=== PATIENT | female | born 1995 | race Hispanic/Latino ===

== ENCOUNTER → 2017-02-18 | Day surgery (SDC) | payer SELFPAY ==
[~2017-02-18] MED LIST: Acetaminophen 500 MG TAB PO PRN
[2017-02-19 00:25] VITALS: BP 106/61; TEMP 98.2; BMI 26.4
[2017-02-19 01:09] LABS: Bilirubin Negative (Negative); Blood, Urine Negative (Negative); Glucose, Urine (Dipstick) Negative (Negative); Ketone, Urine Negative (Negative); Nitrite Negative (Negative); Protein, Urine (Dipstick) Negative (Neg-Trace)
--- NOTE | 2017-02-19 01:13 | PDOC.LDHP ---
Labor and Delivery H&P Chief complaint: other (brown discharge/spotting X2days) HPI: 22 yo presents for brown vaginal discharge that she noticed after wiping for the last 1.5 days. She does report h/o of fall onto buttocks approx 3 days ago. Reports good movement since fall. Denies dysuria, complications, increased swelling, current headache. Lay Out Inspector cvat tenderness. Fundus approx 4 cm above umbilicus, nttp. Current gestational age (weeks): 22 Due date: 06/20/16 Dating criteria: last menstrual period, first trimester ultrasound Grav: 3 Para: 2 Current complications: none Abnormal US findings: No Current medications: pre-jane vitamins Social history: none - Physical Exam Vital signs reviewed and normal: yes General: NAD, resting Heart: RRR Lungs: nonlabored breathing Abdomen: gravid Extremeties: no edema [place] contractions every: absent - OB Labs Blood type: O RH: positive Antibody Screen: negative HIV: negative RPR: negative HEPSAg: negative GBS: unknown Urine drug screen: not done - Plan Plan: observation in L&D -: vaginal bleeding vp3 UA with microscopy US showed posterior placenta w/o evidence of previa FHR 140s, no contractions No cva tenderness obs, test results pending will f/u <Tristian Jones - Last Filed: 02/19/17 01:43> <Dee Mcelroy - Last Filed: 02/19/17 23:22> Allergies/Adverse Reactions: Allergies Allergy/AdvReac Type Severity Reaction Status Date / Time cinnamon Allergy Verified 01/27/16 06:51 peanut Allergy Verified 01/27/16 06:51 Attending Addendum - Attending Addendum I personally evaluated the patient and discussed the management with Dr. Jones on 02/19/17. I agree with the History, Examination, Assessment and Plan documented above with any addition or exceptions noted below. No cause for brief vaginal spotting found. VP3 resulted negative, urine culture pending. Placenta well away from cervical os. Cat 1 FHTs. Discharge home with close follow up. <Dee Mcelroy - Last Filed: 02/19/17 23:22>
== END ==
LOC: L&D/OP 23:55
PROVIDERS: ATTEND Family Medicine
DX: O26.852 Spotting complicating pregnancy, second trimester (principal); Z91.81 History of falling; Z3A.22 22 weeks gestation of pregnancy; Z79.899 Other long term (current) drug therapy; Z88.8 Allergy status to other drugs, medicaments and biological substances; Z91.010 Allergy to peanuts
CPT/HCPCS: 81003; 87480; 87510; 87660

== ENCOUNTER 2017-06-17 13:17 | Inpatient (IN) | payer MEDICAID, OTHER, SELFPAY ==
[~2017-06-17 13:17] MED LIST changes: -Acetaminophen 500 MG TAB PO PRN; +Bupivacaine 0.25% HCL 30 ML VIAL ONE
[2017-06-17] MEDS: Lactated Ringer's 1,000 ML IV SCH ×2 (14:20→16:17)
[2017-06-17] MEDS ORDERED: Acetaminophen 500 MG TAB PO PRN (14:42)
[2017-06-17] MEDS ORDERED: Ibuprofen 800 MG TAB PO PRN (14:42)
[2017-06-17] MEDS ORDERED: Lidocaine 1% (PF) 30 ML VIAL SC PRN (14:42)
[2017-06-17] MEDS ORDERED: Promethazine HCl 25 MG/ML VIAL IM PRN ×2 (14:42→15:49)
[2017-06-17] MEDS ORDERED: Ondansetron HCl/PF 4 MG/2 ML Vial IVP PRN ×2 (14:42→15:49)
[2017-06-17 14:45] VITALS: BMI 28.7
[2017-06-17 14:54] LABS: Hemoglobin 14.5 g/dL (12.0-16.0); Mean Corpuscular HGB CONC 34.2 g/dL (32.0-36.0); Mean Corpuscular Hemoglobin 33.1 pg (27.0-31.0); Mean Corpuscular Volume 96.8 fl (81.0-99.0); Mean Platelet Volume 10.8 fL (7.4-10.4); Platelet Count 153 thou/uL (130-400); RBC Distribution Width 12.6 % (11.5-14.5); Red Blood Cell (RBC) Count 4.37 mill/uL (4.20-5.40); White Blood Cell (WBC) Count 9.7 thou/uL (4.8-10.8)
[2017-06-17] MEDS ORDERED: Bupivacaine 0.5% 20 ML, Fentanyl 400 MCG in Sodium Chloride 0.9% 72 ML EPIDURAL SCH (15:00)
[2017-06-17 15:25] LABS: HBSAg Index 0.14 S/CO (0-0.99); Hep B Surf Ag Non-Reactive S/CO (NonReactive); Syphilis Antibody Nonreactive (Nonreactive); Syphilis Antibody Index 0.04 S/CO (<1.00 Non-Reactive)
[2017-06-17] MEDS ORDERED: Lactated Ringer's 500 ML IV PRN (15:49)
[2017-06-17] MEDS ORDERED: ePHEDrine/0.9% NaCl/PF SYRINGE 50 mg/10 ml SLOW IVP PRN (15:49)
[2017-06-17] MEDS ORDERED: Naloxone HCl 0.4 mg/ml Vial IVP PRN ×2 (15:49)
[2017-06-17] MEDS ORDERED: Acetaminophen 325 MG TAB PO PRN (15:49)
[2017-06-17] MEDS ORDERED: diphenhydrAMINE 50 MG/ML VIAL IVP PRN (15:49)
[2017-06-17] MEDS ORDERED: Eucerin (Mineral Oil/Petrolatum,White) 30 gm Jar TOP PRN (15:49)
--- NOTE | 2017-06-17 15:56 | PDOC.LDHP ---
Labor and Delivery H&P Chief complaint: contractions HPI: Contractions for appx 8 hours with some thick fluid, but no gush of fluid. Current gestational age (weeks): 39 (+4) Due date: 06/20/17 Dating criteria: last menstrual period, first trimester ultrasound Grav: 3 Para: 2 (2001) OB History Details: 1. Glucose intolerance 2. high normal 3T had[place] 3. Short interval 4. Dengue positive Abnormal US findings: No (HADLOCK 86%) Past Medical History: none Current medications: pre- vitamins Previous surgical history: other ( x2) Social history: none - Physical Exam General: breathing through contractions Heart: RRR Lungs: CTAB Abdomen: NTTP Extremeties: no edema FHT: category 2, variable decelerations (infrequent variable decels, accelerations present.), variability present [place] contractions every: 2-3 ,minutes - Vaginal Exam cm dilated: 6 Effacement: 75% Station: -2 - OB Labs Blood type: O RH: positive Antibody Screen: negative HIV: negative RPR: negative HEPSAg: negative 1 hour GCT: positive 3 hour GTT: negative GBS: negative Urine drug screen: not done Rubella: immune Additional Labs: 1. zika negative 2. Dengue positive - Assessment L&D Assessment: term patient in labor 1. Term in active labor- at 39+4 by 1T US. Will manage expectantly. GBS negative. membranes are intact by exam. 2. Borderline LGA on US- Will evaluate baby after delivery based on weight. - Plan Plan: admit to L&D, anesthesia consult for pain management <Marciano Pacheco - Last Filed: 06/17/17 18:31> <Minna Antonio - Last Filed: 06/17/17 18:41> Allergies/Adverse Reactions: Allergies Allergy/AdvReac Type Severity Reaction Status Date / Time cinnamon Allergy Verified 01/27/16 06:51 peanut Allergy Verified 01/27/16 06:51 Attending Addendum - Attending Addendum Date/Time: 06/17/17 [id number] I personally evaluated the patient and discussed the management with Dr. Pacheco I agree with the History, Examination, Assessment and Plan documented above with any addition or exceptions noted below- 22 yo @ 39.4 weeks in active labor. Category 1 FHTs. Admit to L&D-expectant management. Epidural once labs available. <Minna Antonio - Last Filed: 06/17/17 18:41>
[2017-06-17] MEDS ORDERED: Communication Order-Pharmacy FS SCH (16:00)
[2017-06-17] MEDS ORDERED: Fentanyl 4mcg/Marcaine 0.1% Cassette 100 ML EPIDURAL SCH (16:00)
--- NOTE | 2017-06-17 16:01 | PDOC.LDPN ---
Labor & Delivery Progress Note - Subjective Subjective: painful contractions - Objective Vital signs reviewed and normal: yes General: breathing through contractions SVE: 14:55 Dilation: 6 Effacement: 75% Station: -1 FHT: category 1 [place] contractions every: q2-3 min - Assessment (1) Term Code(s): Z34.80 - ENCOUNTER FOR SUPRVSN OF NORMAL , UNSP TRIMESTER Current Visit: Yes Status: Acute Plan: continue plan of care (Labor progressing. Patient desires epidural for pain managment. Will contact anesthesia once labs available. Recheck in 2 hours. )
--- NOTE | 2017-06-17 18:39 | PDOC.LDPN ---
Labor & Delivery Progress Note - Subjective Subjective: comfortable (Now with epidural in place. ) - Objective Vital signs reviewed and normal: yes (Borderline BP after epidural. Asymptomatic ) General: NAD, resting Uterine fundus: palpable contractions Dilation: 6 Effacement: 75% Station: -2 FHT: category 1 [place] contractions every: 5 minutes Other exam findings: Intact - Assessment (1) Term Code(s): Z34.80 - ENCOUNTER FOR SUPRVSN OF NORMAL , UNSP TRIMESTER Current Visit: Yes Status: Acute Comment: 22 yo female at 39.4 wks by LMP/12.5 wk sono admitted for active labor. IOB and anatomy reviewed. NILM 08/2016. Quad screen negative. 1 hour gtt = 143. 3 hour gtt = 83/154/105/75. 3T negative. GBS negative. Cephalic. EFW = [address] for pain control. Monitor BPs. Will start pitocin for augmentation. Has been unchanged since 1600. (2) Glucose intolerance of Code(s): O99.810 - ABNORMAL GLUCOSE COMPLICATING Current Visit: Yes Status: Acute Comment: Borderline 1 hour gtt screening. Past 3 hour gtt. No evidence of progression throughout . (3) Short interval between pregnancies affecting in third trimester, antepartum Code(s): O09.893 - SUPERVISION OF OTHER HIGH RISK PREGNANCIES, THIRD TRIMESTER Current Visit: Yes Status: Acute Comment: No complications this . Has been on iron supplementation due to iron def anemia but otherwise has made it to term. Plan: labor augmentation -: Sanjeev
[2017-06-17] MEDS ORDERED: LR 500 ML/Oxytocin 10 units 500 ML IV SCH (18:45)
--- NOTE | 2017-06-17 20:56 | PDOC.LDPN ---
Labor & Delivery Progress Note - Subjective Subjective: comfortable (epidural in place), vaginal pressure - Objective Vital signs reviewed and normal: yes General: NAD, resting Uterine fundus: palpable contractions Dilation: 9 Effacement: 100% Station: 0 FHT: category 1 Other exam findings: SROM at 1999 - Assessment (1) Term Code(s): Z34.80 - ENCOUNTER FOR SUPRVSN OF NORMAL , UNSP TRIMESTER Current Visit: Yes Status: Acute Comment: 22 yo female at 39.4 wks by LMP/12.5 wk sono admitted for active labor. IOB and anatomy reviewed. NILM 08/2016. Quad screen negative. 1 hour gtt = 143. 3 hour gtt = 83/154/105/75. 3T negative. GBS negative. Cephalic. EFW = [address] for pain control. BP now back at baseline. Pitocin per protocol. SROM at 1999. Now 9 cm. (2) Glucose intolerance of Code(s): O99.810 - ABNORMAL GLUCOSE COMPLICATING Current Visit: Yes Status: Acute Comment: Borderline 1 hour gtt screening. Past 3 hour gtt. No evidence of progression throughout . (3) Short interval between pregnancies affecting in third trimester, antepartum Code(s): O09.893 - SUPERVISION OF OTHER HIGH RISK PREGNANCIES, THIRD TRIMESTER Current Visit: Yes Status: Acute Comment: No complications this . Has been on iron supplementation due to iron def anemia but otherwise has made it to term. Plan: continue plan of care -: Sanjeev
[2017-06-17] MEDS: LR / Pitocin 40 units/1000 ml 1,000 ML IV PRN ×2 (21:20→23:55)
--- NOTE | 2017-06-17 21:41 | PDOC.OPDEL ---
OB Operative/Delivery Note Delivery Dr/Surgeon: Ro Diaz DO Assist: Kathryn Cordero MD Pre-Delivery Diagnosis: active labor, other (Glucose intolerance, Short interval, Zika exposure) Procedure/Post Delivery Dx: spontaneous vaginal delivery (30 sec shoulder dystocia relieved with Nikos Manuever) Weeks gestation: 39 (39.4 wks) Anesthesia: epidural - Findings A Sex: male Weight: 3.71 kg - 1 min: 7 - 5 min: 9 - Additional Findings/Plan Placenta delivered: spontaneous Repaired Obstetrical Laceration: other (NONE) Estimated blood loss: 250 mL Compilations/Other Findings: Nuchal cord. Delivered and reduced afterwards. Brief shoulder dystocia, relieved with downward traction and Nikos maneuver. In brief....22 yo female at 39.4 wks by LMP/12.5 wk sono presented to labor and delivery in active labor. Found to be intact at 6 cm. Contractions every 3 to 5 minutes. Cat 1 tracing. Cephalic presentation. Pitocin started after no change within 3 hours. Progressed appropriately. SROM at 1999 with clear fluid. Found to be complete and ready to push at 2053. Second stage progressed uneventfully. Infant delivered in OA position over an intact perineum. After resitution, nuchal cord identified. Not able to easily reduce. Decided to deliver through. Brief shoulder dystocia for approximately 30 sec relieved with Nikos. Male infant delivered at 2113. Placenta followed spontaneously. No vaginal lacerations. Delayed clamping of cord performed. Infant quickly cried after delivery. Terminal mec. APGARS 7/9. Skin to skin started. Will initiate breast feeding in room. ABrayMD Post delivery plan: routine recovery
[2017-06-18] MEDS ORDERED: Ondansetron HCl/PF 4 MG/2 ML Vial IVP PRN (00:24)
[2017-06-18] MEDS ORDERED: LR / Pitocin 40 units/1000 ml 1,000 ML IV SCH (00:24)
[2017-06-18] MEDS ORDERED: Adacel (T-DAP) 0.5 ML VIAL IM ONE (00:24)
[2017-06-18] MEDS ORDERED: Milk Of Magnesia 30 ML UDCUP PO PRN (00:24)
[2017-06-18] MEDS ORDERED: Lanolin Ointment 7 GM TUBE TOP PRN (00:24)
[2017-06-18] MEDS ORDERED: Bisacodyl 10 MG SUPP PR PRN (00:24)
[2017-06-18] MEDS: Ibuprofen 800 MG TAB PO SCH ×3 (03:59→21:31)
--- NOTE | 2017-06-18 08:18 | PDOC.PP ---
Post Progress Note Post Day #: 1 Subjective: Patient doing well. She is still tired from delivery but has normal lochia and has tolerated snacks and water normally. PO intake tolerated: yes Flatus: yes Ambulation: yes Vital Signs (12 hours) Temp Pulse Resp BP Pulse Ox 06/18/17 03:30 98.2 F 69 16 104/65 06/18/17 01:15 98.0 F 65 18 110/68 06/18/17 00:15 98.2 F 72 18 119/64 96 Weight Weight 66.678 kg - Physical Examination General: NAD Cardiovascular: no m/r/g, RRR Respiratory: clear to auscultation bilaterally, non-labored breathing Abdominal: + bowel sounds, lochia, no distention, appropriately TTP Fundus firm & at: umbilicus Extremities: negative homans (B) Skin: CS incision dry & intact, no rash Neurological: no gross focal deficits Psychiatric: A&Ox3, normal affect Result Diagrams: 06/17/17 14:20 Additional Labs: Post Labs Hep Bs Antigen Non-Reactive S/CO (NonReactive) 06/17/17 14:20 (1) (spontaneous vaginal delivery) Code(s): O80 - ENCOUNTER FOR FULL-TERM UNCOMPLICATED DELIVERY Status: Acute Comment: 12 hr post delivery, doing well. [place] is removed but she hasn't walked yet. she has tolerated fluids and small snacks. pain is controlled. Plan for routine care and continued today. (2) Glucose intolerance of Code(s): O99.810 - ABNORMAL GLUCOSE COMPLICATING Status: Acute Comment: Borderline 1 hour gtt screening. Past 3 hour gtt. No evidence of progression throughout . (3) Short interval between pregnancies affecting in third trimester, antepartum Code(s): O09.893 - SUPERVISION OF OTHER HIGH RISK PREGNANCIES, THIRD TRIMESTER Status: Acute Comment: No complications this . Has been on iron supplementation due to iron def anemia but otherwise has made it to term. - Assessment/Plan Likely Discharge tomorrow if continues routine course. <Marciano Pacheco - Last Filed: 06/18/17 08:16> Vital Signs (12 hours) Temp Pulse Resp BP Pulse Ox 06/18/17 20:43 98.2 F 69 18 109/68 98 06/18/17 17:31 98.0 F 62 18 121/79 06/18/17 17:10 97.9 F 74 20 Weight Weight 66.678 kg Result Diagrams: 06/17/17 14:20 Additional Labs: Post Labs Hep Bs Antigen Non-Reactive S/CO (NonReactive) 06/17/17 14:20 (1) Term Code(s): Z34.80 - ENCOUNTER FOR SUPRVSN OF NORMAL , UNSP TRIMESTER Status: Acute Comment: 22 yo female at 39.4 wks by LMP/12.5 wk sono admitted for active labor. IOB and anatomy reviewed. NILM 08/2016. Quad screen negative. 1 hour gtt = 143. 3 hour gtt = 83/154/105/75. 3T negative. GBS negative. Cephalic. EFW = [address] for pain control. BP now back at baseline. Pitocin per protocol. SROM at 2000. Now 9 cm. (2) Glucose intolerance of Code(s): O99.810 - ABNORMAL GLUCOSE COMPLICATING Status: Acute Comment: Borderline 1 hour gtt screening. Past 3 hour gtt. No evidence of progression throughout . (3) Short interval between pregnancies affecting in third trimester, antepartum Code(s): O09.893 - SUPERVISION OF OTHER HIGH RISK PREGNANCIES, THIRD TRIMESTER Status: Acute Comment: No complications this . Has been on iron supplementation due to iron def anemia but otherwise has made it to term. <Kathryn Cordero - Last Filed: 06/19/17 00:44> Attending Addendum - Attending Addendum Date/Time: 06/19/17 0040 I personally evaluated the patient and discussed the management with Dr. Pacheco at time of evaluation. I agree with the History, Examination, Assessment and Plan documented above with any addition or exceptions noted below. 22 yo now at 39.4 wks s/p complicated by mild shoulder dystocia on 06/17/17 at 2114. PPD#1 Doing well. Lochia appropriate. Ambulating. Pain controlled. Afebrile. VS reviewed. PE: NAD. RRR. CTAB. Fundus firm and nontender. A/P: 1. s/p : Routine care. Likely d/c in AM. 2. Glucose intolerance 3. Contraception: To be decided. Sanjeev <Kathryn Cordero - Last Filed: 06/19/17 00:44>
[2017-06-18] MEDS: Ferrous Sulfate 325 MG TAB PO SCH ×2 (08:27→17:29)
[2017-06-18] MEDS: Prenatal Vitamin 1 TAB PO SCH (08:27)
[2017-06-18] MEDS: Docusate Calcium (SURFAK) 240 MG CAP PO SCH ×2 (08:27→21:32)
[2017-06-19] MEDS: Ibuprofen 800 MG TAB PO SCH (05:53)
[2017-06-19] MEDS: Ferrous Sulfate 325 MG TAB PO SCH (07:14)
[2017-06-19 07:59] VITALS: BP 118/74; TEMP 97.9
--- NOTE | 2017-06-19 08:17 | PDOC.PP ---
Post Progress Note Post Day #: 2 Subjective: Patient doing well this AM. No significant overnight events. Patient tolerating PO and passnig flatus. Ambulating without difficulty. [place] wnl. PO intake tolerated: yes Flatus: yes Ambulation: yes Vital Signs (12 hours) Temp Pulse Resp BP Pulse Ox 06/19/17 07:58 97.9 F 66 20 118/74 06/18/17 20:43 98.2 F 69 18 109/68 98 Weight Weight 66.678 kg - Physical Examination General: NAD Cardiovascular: no m/r/g, RRR Respiratory: clear to auscultation bilaterally, non-labored breathing Abdominal: + bowel sounds, lochia (wnl), no distention, appropriately TTP Fundus firm & at: umbilicus Skin: no rash Neurological: no gross focal deficits Psychiatric: A&Ox3, normal affect Result Diagrams: 06/17/17 14:20 Additional Labs: Post Labs Hep Bs Antigen Non-Reactive S/CO (NonReactive) 06/17/17 14:20 (1) (spontaneous vaginal delivery) Code(s): O80 - ENCOUNTER FOR FULL-TERM UNCOMPLICATED DELIVERY Status: Acute Comment: 22 year old delivered TAGA M infant on 06/17/2017 at 21:14 via . - Cytotec 800 mg given 1 hour post delivery for boggy uterus and passing of clots; lochia wnl at this time. No problems with bleeding. Hg and Hct have remained stable. Uterus firm - Encourage - Tolerating PO, passing flatus - Patient ambulating without difficulty - Anticipate d/c home today with routine follow up in [facility] 2 weeks (2) Short interval between pregnancies affecting in third trimester, antepartum Code(s): O09.893 - SUPERVISION OF OTHER HIGH RISK PREGNANCIES, THIRD TRIMESTER Status: Acute Comment: No complications this . Has been on iron supplementation due to iron def anemia. (3) Glucose intolerance of Code(s): O99.810 - ABNORMAL GLUCOSE COMPLICATING Status: Acute Comment: Borderline 1 hour gtt screening. Passed 3 hour gtt. No evidence of progression throughout . <Ro Garcia - Last Filed: 06/19/17 08:21> Weight Weight 66.678 kg Result Diagrams: 06/17/17 14:20 Additional Labs: Post Labs Hep Bs Antigen Non-Reactive S/CO (NonReactive) 06/17/17 14:20 (1) Term Code(s): Z34.80 - ENCOUNTER FOR SUPRVSN OF NORMAL , UNSP TRIMESTER Status: Acute Comment: 22 yo female at 39.4 wks by LMP/12.5 wk sono admitted for active labor. IOB and anatomy reviewed. NILM 08/2016. Quad screen negative. 1 hour gtt = 143. 3 hour gtt = 83/154/105/75. 3T negative. GBS negative. Cephalic. EFW = [address] for pain control. BP now back at baseline. Pitocin per protocol. SROM at 1999. Now 9 cm. (2) Glucose intolerance of Code(s): O99.810 - ABNORMAL GLUCOSE COMPLICATING Status: Acute Comment: Borderline 1 hour gtt screening. Passed 3 hour gtt. No evidence of progression throughout . (3) Short interval between pregnancies affecting in third trimester, antepartum Code(s): O09.893 - SUPERVISION OF OTHER HIGH RISK PREGNANCIES, THIRD TRIMESTER Status: Acute Comment: No complications this . Has been on iron supplementation due to iron def anemia. <Kathryn Cordero - Last Filed: 06/22/17 10:13> Attending Addendum - Attending Addendum Date/Time: 06/22/17 1011 I personally evaluated the patient and discussed the management with Dr. Diaz at time of evaluation. I agree with the History, Examination, Assessment and Plan documented above with any addition or exceptions noted below. 22 yo now at 39.4 wks s/p complicated by mild shoulder dystocia on 06/17/17 at 2114. PPD#2 Doing well. Lochia appropriate. Ambulating. Pain controlled. Afebrile. VS reviewed. PE: NAD. RRR. CTAB. Fundus firm and nontender. A/P: 1. s/p : Routine care. Stable for d/c today. Breast feeding well. 2. Glucose intolerance: Mild shoulder dystocia with delivery. Would monitor for GDM and monitor growth closely with next . 3. Contraception: To be decided. Follow up with [facility] in 2 wks. ABrayMD <Kathryn Cordero - Last Filed: 06/22/17 10:13>
[2017-06-19] MEDS: Docusate Calcium (SURFAK) 240 MG CAP PO SCH (09:51)
[2017-06-19] MEDS: Prenatal Vitamin 1 TAB PO SCH (09:51)
== END 2017-06-19 12:15 | disposition home or self-care (01) | DRG 775 ==
LOC: L&D/OP 13:17 → L&D 16:29 → 3SW 06-18 00:20
PROVIDERS: ADMIT Student in an Organized Health Care Education/Training Program; ATTEND Student in an Organized Health Care Education/Training Program
PROC: 10E0XZZ Delivery of Products of Conception, External Approach (ICD-10-PCS; principal; 2017-06-17)
DX: O66.0 Obstructed labor due to shoulder dystocia (principal); O69.81X0 Labor and delivery complicated by cord around neck, without compression, not applicable or unspecified; O76 Abnormality in fetal heart rate and rhythm complicating labor and delivery; O99.02 Anemia complicating childbirth; Z3A.39 39 weeks gestation of pregnancy; Z37.0 Single live birth
CPT/HCPCS: 51702; 85027; 86780; 87340; 99285; J2001; J3010; J3490; J7050; J7120; S0020

== ENCOUNTER 2018-03-04 00:25 | Emergency (ER) | payer MEDICAID, SELFPAY ==
[2018-03-04 01:51] LABS: #Basophils 0.1 thou/uL (0.0-0.2); #Eosinphils 0.1 thou/uL (0.0-0.7); #Lymphocytes 2.5 thou/uL (1.20-3.40); #Monocytes 0.7 thou/uL (0.11-0.59); #Neutrophils 5.8 thou/uL (1.40-6.50); %Basophils 0.9 % (0.0-1.0); %Eosinophils 1.6 % (0.0-10.0); %Lymphocytes 27.4 % (21.0-51.0); %Monocytes 7.7 % (0.0-10.0); %Neutrophils 62.4 % (42.0-75.0); Hemoglobin 13.9 g/dL (12.0-16.0); Mean Corpuscular HGB CONC 33.2 g/dL (32.0-36.0); Mean Corpuscular Hemoglobin 30.8 pg (27.0-31.0); Mean Corpuscular Volume 92.8 fL (78.0-98.0); Mean Platelet Volume 7.9 fL (7.4-10.4); Platelet Count 388 thou/uL (130-400); RBC Distribution Width 11.6 % (11.5-14.5); White Blood Cell (WBC) Count 9.3 thou/uL (4.8-10.8)
[2018-03-04] MEDS ORDERED: Ondansetron ODT 4 MG TAB ONE (01:56)
[2018-03-04] MEDS ORDERED: Ketorolac Tromethamine 30 MG/ML VIAL ONE (01:56)
[2018-03-04 02:10] LABS: Lactic Acid 0.5 mmol/L (0.5-2.2)
[2018-03-04 02:12] LABS: Specific Gravity 1.034 (1.002-1.036)
[2018-03-04 02:14] LABS: Pregnancy Test - Urine (BHCG) Negative (Negative); Pregu Control Background? CLEAR/WHITE (CLR/WHITE); Pregu Control Bar Appear? YES (CONTROL BAR)
[2018-03-04 02:14] LABS: ALT (SGPT) 18 U/L (8-55); AST (SGOT) 16 U/L (5-34); Alkaline Phosphatase 93 U/L (40-150); Anion Gap 12 mmol/L (10-20); BUN (Urea Nitrogen) 19 mg/dL (7.0-18.7); Bilirubin, Total 0.4 mg/dL (0.2-1.2); Calc. Creatinine Clearance 0 mL/min (70-130); Calcium 8.9 mg/dL (7.8-10.44); Carbon Dioxide 23 mmol/L (22-29); Chloride 107 mmol/L (98-107); Estimated GFR-MDRD Greater than 90; Glucose 108 mg/dL (70-105); Potassium 3.8 mmol/L (3.5-5.1); Sodium 138 mmol/L (136-145)
--- NOTE | 2018-03-04 08:18 | CT ---
PRELIMINARY REPORT/[facility]/EMERGENTY AFTER-HOURS PROCEDURE CT Neck With Intravenous Contrast EXAM DATE/TIME: 03/04/2018 2:37 AM CLINICAL HISTORY: 23 years old, female; Pain; Neck pain and painful swallowing; Patient HX: ER 14; 23 you f w/o signifi [facility] presents for 2 week history of sore neck and worsening neck swelling on the left side with a ssociated fever, chills, sweats, nausea vomiting. PT reports she was seen at her pcp and dx'd with strep throat, started on azithromycin and told to f/u as needed. She reports they told her they were unsure what was the cause of swelling and pain in her neck. TECHNIQUE: Axial computed tomography images of the neck with intravenous contrast. Coronal and sagittal reformatted images were created and reviewed. COMPARISON: No relevant prior studies available. FINDINGS: Nasopharynx: Normal. Oropharynx: Normal. No significant tonsillar enlargement. No peritonsillar abscess. Hypopharynx: Normal. Larynx: Normal. Normal epiglottis. Trachea: Normal. Retropharyngeal space: Normal. Submandibular/Parotid glands: Normal. Glands are normal in size. Thyroid: Normal. No enlarged or calcified nodules. Bones/joints: Normal. No acute fracture. Soft tissues: Normal. No significant soft tissue swelling. Vasculature: No acute findings. Lymph nodes: There is LEFT cervical chain level II suppurative lymphadenopathy with peripheral enhanc ement and central hypoattenuation suggestive of central necrosis. Node measures 2.5 x 2.6 x 4.7 cm. Lung apices: Normal as visualized. IMPRESSION: LEFT cervical chain suppurative lymphadenopathy with central necrosis compatible with infection or ne oplasm in the appropriate clinical setting. Correlate clinically. Thank you for allowing us to participate in the care of your patient. Dictated and Authenticated by: Kan Britton MD 03/04/2018 3:08 AM Central Time ([place] & [place]) FINAL REPORT CT NECK WITH IV COTNRAST: DATE: 03/04/2018. TIME: Performed on an emergency basis [id number] hours. HISTORY: Neck pain. Fever. Difficulty swallowing. FINDINGS: Agree with the preliminary report by Dr. Britton from [facility]. Superlative adenopathy with central necrosis along the left internal jugular chain. POS: [facility]
[2018-03-04] MEDS ORDERED: Iopamidol 370 76% 100 ML VIAL ONE (16:17)
== END 2018-03-04 03:54 | disposition home or self-care (01) ==
LOC: ERS 00:25
DX: L04.0 Acute lymphadenitis of face, head and neck (principal); Z79.899 Other long term (current) drug therapy
CPT/HCPCS: 36415; 70491; 80053; 81025; 83605; 85025; 85652; 86140; 96374; J1885; Q0162

== ENCOUNTER 2018-03-13 16:34 | Emergency (ER) | payer SELFPAY ==
[2018-03-13 17:36] LABS: #Basophils 0.1 thou/uL (0.0-0.2); #Eosinphils 0.1 thou/uL (0.0-0.7); #Lymphocytes 1.8 thou/uL (1.20-3.40); #Monocytes 0.8 thou/uL (0.11-0.59); #Neutrophils 10.5 thou/uL (1.40-6.50); %Basophils 0.4 % (0.0-1.0); %Eosinophils 0.8 % (0.0-10.0); %Lymphocytes 13.5 % (21.0-51.0); %Monocytes 6.1 % (0.0-10.0); %Neutrophils 79.1 % (42.0-75.0); Mean Corpuscular HGB CONC 33.4 g/dL (32.0-36.0); Mean Corpuscular Hemoglobin 30.2 pg (27.0-31.0); Mean Corpuscular Volume 90.4 fL (78.0-98.0); Platelet Count 403 thou/uL (130-400); RBC Distribution Width 11.8 % (11.5-14.5); Red Blood Cell (RBC) Count 4.65 mill/uL (4.20-5.40); White Blood Cell (WBC) Count 13.3 thou/uL (4.8-10.8)
[2018-03-13 17:50] LABS: ALT (SGPT) 17 U/L (8-55); AST (SGOT) 15 U/L (5-34); Albumin 3.9 g/dL (3.5-5.0); Alkaline Phosphatase 94 U/L (40-150); Anion Gap 13 mmol/L (10-20); BUN (Urea Nitrogen) 10 mg/dL (7.0-18.7); Bilirubin, Total 0.6 mg/dL (0.2-1.2); Calc. Creatinine Clearance 0 mL/min (70-130); Calcium 9.2 mg/dL (7.8-10.44); Carbon Dioxide 24 mmol/L (22-29); Chloride 102 mmol/L (98-107); Estimated GFR-MDRD Greater than 90; Globulin 3.8 g/dL (2.4-3.5); Glucose 115 mg/dL (70-105); Potassium 3.7 mmol/L (3.5-5.1); Protein, Total 7.7 g/dL (6.0-8.3); Sodium 135 mmol/L (136-145)
[2018-03-13] MEDS ORDERED: Ketorolac Tromethamine 30 MG/ML VIAL ONE (18:53)
== END 2018-03-13 19:35 | disposition home or self-care (01) ==
LOC: ERS 16:34
DX: R22.1 Localized swelling, mass and lump, neck (principal)
CPT/HCPCS: 36415; 80053; 85025; 96361; 96374; J1885

== ENCOUNTER 2018-03-15 16:28 | Outpatient (CLI) | payer OTHER ==
--- NOTE | 2018-03-15 19:10 | RAD ---
CHEST TWO VIEW: History: Nonspecific lymphadenitis. Comparison: None. FINDINGS: Normal cardiac silhouette. The pulmonary vessels and hilum are normal. Costophrenic angles are clear. No mass or consolidation. No pneumothorax or osseous abnormalities. IMPRESSION: No acute cardiopulmonary process. POS: [facility]
== END 2018-03-15 16:29 | disposition home or self-care (01) ==
LOC: BICRAD 16:28
PROVIDERS: ATTEND Internal Medicine Infectious Disease
DX: I88.9 Nonspecific lymphadenitis, unspecified (principal)
CPT/HCPCS: 71046

== ENCOUNTER 2018-03-17 22:47 | Emergency (ER) | payer SELFPAY | END 2018-03-17 23:42 | disposition home or self-care (01) | LOC: ERS 22:47 | DX: I88.9 Nonspecific lymphadenitis, unspecified (principal) | CPT/HCPCS: 99282 ==

== ENCOUNTER 2018-03-26 08:45 | Emergency (ER) | payer SELFPAY ==
[2018-03-26 09:49] LABS: #Basophils 0.1 thou/uL (0.0-0.2); #Eosinphils 0.1 thou/uL (0.0-0.7); #Lymphocytes 1.8 thou/uL (1.20-3.40); #Monocytes 0.6 thou/uL (0.11-0.59); #Neutrophils 8.3 thou/uL (1.40-6.50); %Basophils 0.6 % (0.0-1.0); %Eosinophils 0.8 % (0.0-10.0); %Lymphocytes 16.8 % (21.0-51.0); %Monocytes 5.4 % (0.0-10.0); %Neutrophils 76.4 % (42.0-75.0); Hemoglobin 13.1 g/dL (12.0-16.0); Mean Corpuscular HGB CONC 34.3 g/dL (32.0-36.0); Mean Corpuscular Hemoglobin 30.7 pg (27.0-31.0); Mean Corpuscular Volume 89.5 fL (78.0-98.0); Mean Platelet Volume 8.3 fL (7.4-10.4); Platelet Count 345 thou/uL (130-400); RBC Distribution Width 11.8 % (11.5-14.5); Red Blood Cell (RBC) Count 4.29 mill/uL (4.20-5.40); White Blood Cell (WBC) Count 10.9 thou/uL (4.8-10.8)
[2018-03-26 10:05] LABS: ALT (SGPT) 14 U/L (8-55); AST (SGOT) 15 U/L (5-34); Albumin 3.9 g/dL (3.5-5.0); Alkaline Phosphatase 95 U/L (40-150); Anion Gap 12 mmol/L (10-20); BUN (Urea Nitrogen) 11 mg/dL (7.0-18.7); Bilirubin, Total 0.4 mg/dL (0.2-1.2); Calc. Creatinine Clearance 0 mL/min (70-130); Calcium 8.9 mg/dL (7.8-10.44); Carbon Dioxide 23 mmol/L (22-29); Chloride 106 mmol/L (98-107); Estimated GFR-MDRD Greater than 90; Globulin 4.1 g/dL (2.4-3.5); Glucose 113 mg/dL (70-105); Potassium 3.7 mmol/L (3.5-5.1); Sodium 137 mmol/L (136-145)
--- NOTE | 2018-03-26 10:23 | RAD ---
LEFT KNEE 4 VIEWS: HISTORY: Left knee pain. FINDINGS: There are no signs of fracture, dislocation, or joint effusion. Joint spaces appear well preserved. IMPRESSION: Unremarkable left knee. POS: [facility]
[2018-03-26] MEDS ORDERED: Ketorolac Tromethamine 30 MG/ML VIAL ONE (10:56)
== END 2018-03-26 11:15 | disposition home or self-care (01) ==
LOC: ERS 08:45
DX: M25.562 Pain in left knee (principal)
CPT/HCPCS: 36415; 80053; 85025; 96372; J1885

== ENCOUNTER 2019-03-21 01:39 | Observation (INO) | payer OTHER, SELFPAY ==
[2019-03-21 02:09] VITALS: BMI 29.5
[2019-03-21] MEDS ORDERED: hydrALAZINE 20 MG/ML VIAL SLOW IVP PRN ×2 (02:50→04:34)
[2019-03-21 03:19] LABS: Bacteria/HPF 1+ HPF (None Seen); Bilirubin Negative (Negative); Blood, Urine 3+ (Negative); Clarity Clear (Clear); Glucose, Urine (Dipstick) Normal (Negative); Leukocyte 25 Leu/uL (Negative); Nitrite Negative (Negative); Protein, Urine (Dipstick) 30 mg/dL (Neg-Trace); RBC/HPF Greater than 50 HPF (0-3); Squamous Epithelial 0-3 HPF (0-3); Urobilinogen Normal mg/dL (Less than 2)
[2019-03-21 03:21] LABS: Urine Culture Reflex Yes Yes
--- NOTE | 2019-03-21 03:39 | PDOC.FPROB ---
FMR OB H&P: HPI - History of Present Illness Chief Complaint: Vaginal Bleeding, Back pain Indentification: 24 yo at 21.3 weeks by LMP/8.6 wk sono History of Present Illness: Patient is a 24 yo female who presents with complaint of vaginal bleeding and back pain. States that at approx 0030 today she went to bathroom and noticed bright red blood on the toilet paper. She says around this time she also had sharp and stabbing mid right back pain that radiated around and to the front of her RLQ and suprapubic regions. She additionally complains of some increased suprapubic pressure. Denies any dysuria or increased urinary frequency. Does say her urine has been darker in color and appears to be blood- tinged. No poppy blood seen in toilet. Patient then describes and additional 3- 4 episodes of having sharp right back pain that lasted about 1 minute and then went away. She tried taking some Tylenol but this did not seem to have an effect on her pain. Since arrival she says she went to bathroom once and again noticed bright red blood on toilet paper. Still feeling baby move as normal. Denies any vaginal discharge, loss of fluid, nausea, vomiting, abdominal pain, diarrhea, headache, vision changes, SOB, chest pain. Primary Care Physician: PNC--Radha/Gil FMR OB H&P: Current - Care : 5 Para: 3013 Gestational age: 21.3 wks Due date: 07/29/2019 Dating Criteria: 8.6 wk U/S c/w LMP Course/Complications: no issues so far this previous hx of glucose intolerance in last short intervals - OB Labs Blood type: unknown RH: unknown Antibody Screen: unknown HIV: unknown RPR: unknown HepBsAg: unknown Quad screen: unknown Urine drug screen: not done Gonorrhea: unknown Chlamydia: unknown GBS: unknown - First Trimester Ultrasound First trimester: 8.6 weeks dating - Anatomy Survey Anatomy survey: recently done at [facility], report pending FMR OB H&P: History - Past Medical History PMH: hx of Dengue positive in last - OB History OB History: all previous Last had a shoulder dystocia - [employer]IAN History [employer]IAN History: none - Surgical History Sx History: none - Social History Social History: Denies tobacco, EtOH, or other drug use - Family History Family History: non-contributory FMR OB H&P: Medications - Current Home Medications: Medication Instructions Recorded Confirmed Type Vit,Calc76/Iron/Folic 1 tablet PO DAILY 07/14/13 03/21/19 History [Prenatabs Rx Tablet] Acetaminophen [Tylenol] 2 tab PO PRN PRN 03/21/19 03/21/19 History Allergies/Adverse Reactions: Allergies Allergy/AdvReac Type Severity Reaction Status Date / Time Penicillins Allergy Intermediate Swollen Verified 03/21/19 02:04 Lips cinnamon Allergy Verified 01/27/16 06:51 peanut Allergy Verified 01/27/16 06:51 FMR OB H&P: ROS - Review of Systems General: denies: fever/chills, weight/appetite/sleep changes, fatigue Eyes: denies: vision changes, double vision ENT: denies: nasal congestion, sore throat Cardiovascular: denies: chest pain, palpitation, edema Respiratory: denies: cough, congestion, shortness of breath Gastrointestinal: denies: abdominal pain, indigestion, cramping, nausea, vomiting, diarrhea, constipation Genitourinary (Female): reports: hematuria, vaginal bleeding. denies: incontinence, dysuria, polyuria, vaginal discharge, vaginal pain, contractions, vaginal pressure Musculoskeletal: denies: pain, tenderness, arthritis/arthralgias Neurologic: denies: weakness, headache Integumentary: denies: itching, rash, lesions Endocrine: denies: polyuria Psychological: denies: depression, anxiety FMR OB H&P: Vital Signs - Maternal Vital signs: Vital Signs - First Documented Temp Pulse Resp BP Pulse Ox 98.1 F 75 18 106/60 98 03/21/19 02:04 03/21/19 02:04 03/21/19 02:04 03/21/19 02:04 03/21/19 02:04 - Heart Tones Baseline: 155 Variability: minimal Acceleration: absent Deceleration: absent [place] contractions every: none seen FMR OB H&P: Physical Exam - Physical Exam General: NAD, awake, alert and oriented HEENT: normocephalic and atraumatic, EOMI, MMM, conjunctiva clear, no scleral icterus, grossly normal vision, grossly normal hearing Neck: supple Heart: RRR, normal S1/S2, no murmurs/rubs/gallops, pulses present, no edema General: CTAB, no respiratory distress, good air movement, no rales/rhonchi, no wheezing Abdomen: soft, non-tender, bowel sound present Deviation from normal: TTP over suprapubic area. CVA tenderness on right. Musculoskeletal: normal gait and station, pulses present Neurological: sensation to pain,touch and proprioception grossly normal, no focal deficit Skin: no rash, good tugor Psychiatric: intact recent and remote memory, normal mood and affect - Pelvic Exam Vulva: normal hair distribution, no lesions Cervix: no lesions ( No apparent lesions/tears on vaginal wall or cervix. Upon starting to pull speculum out there was a moderate amount of bright red blood that came out of cervical os and began pooling.) Deviation from normal: thick white discharge present in vaginal vault. FMR OB H&P: Results - Labs Lab results: Laboratory Results - last 24 hr 03/21/19 03:01 Urine Color Light-Brown Urine Clarity Clear Urine pH 6.5 Ur Specific [place] 1.013 Urine Protein 30 A Urine Glucose (UA) Normal Urine Ketones Negative Urine Blood 3+ A Urine Nitrite Negative Urine Bilirubin Negative Urine Urobilinogen Normal Ur Leukocyte Esterase 25 Urine RBC Greater than 50 A Urine WBC 11-20 A Ur Squamous Epith Cells 0-3 Urine Bacteria 1+ A Urine Culture Reflexed Yes A FMR OB H&P: A/P - Problem List (1) Vaginal bleeding before 22 weeks gestation Current Visit: Yes Status: Acute Code(s): O20.9 - HEMORRHAGE IN EARLY , UNSPECIFIED Disposition: 24 yo at 21.3 weeks presents with back pain and vaginal bleeding: #Vaginal Bleeding -vaginal exam with bright red blood per cervical os, no apparent lesions -will order OB Ultrasound to evaluate for placental abruption vs subchorinic hemorrhage vs placenta previa vs other #Back pain -suspect nephrolithiasis vs pyelonephritis -will obtain UA & urine culture, CBC -will obtain renal U/S Dispo: Stable. Will await further U/S imaging. Append: UA results consistent with acute cystitis. Will start on Rocephin. Will plan for renal u/s to further evaluate for nephrolithiasis. Will admit patient to observation on women's unit to monitor for any further vaginal bleeding. Consider repeating sterile speculum exam later today. Discussion: Date/Time: 03/21/19 0334 This H&P was discussed with Dr. Byrd and Dr. Jenkins who agree with the above documentation and plan. Addendum - Attending - Attending Attestation Date/Time: 03/21/19 3794 I personally evaluated the patient and discussed the management with Dr. Jeffery and Dr. Byrd. I agree with the History, Examination, Assessment and Plan documented above.
[2019-03-21 04:11] LABS: #Basophils 0.1 thou/uL (0.0-0.2); #Eosinphils 0.2 thou/uL (0.0-0.7); #Lymphocytes 2.5 thou/uL (1.20-3.40); #Monocytes 0.7 thou/uL (0.11-0.59); %Eosinophils 1.6 % (0.0-10.0); %Lymphocytes 23.8 % (21.0-51.0); %Monocytes 6.7 % (0.0-10.0); %Neutrophils 66.9 % (42.0-75.0); Hemoglobin 12.4 g/dL (12.0-16.0); Mean Corpuscular HGB CONC 35.2 g/dL (32.0-36.0); Mean Corpuscular Hemoglobin 32.7 pg (27.0-31.0); Mean Platelet Volume 8.8 fL (7.4-10.4); Platelet Count 218 thou/uL (130-400); RBC Distribution Width 12.2 % (11.5-14.5); Red Blood Cell (RBC) Count 3.78 mill/uL (4.20-5.40); White Blood Cell (WBC) Count 10.4 thou/uL (4.8-10.8)
[2019-03-21] MEDS ORDERED: Ondansetron PF 4 MG/2 ML Vial IVP PRN (04:34)
[2019-03-21] MEDS ORDERED: Promethazine HCl 25 MG/ML VIAL IM PRN (04:34)
[2019-03-21] MEDS ORDERED: Sodium Chloride 0.9% 1,000 ML IV SCH ×3 (04:45→13:30)
[2019-03-21] MEDS ORDERED: cefTRIAXone\\ROCEPHIN 1 GM in Sodium Chloride 0.9% 100 ML IVPB SCH (05:00)
[2019-03-21] MEDS ORDERED: Acetaminophen 500 MG TAB PO PRN (05:48)
--- NOTE | 2019-03-21 07:15 | PDOC.FM ---
- Objective Vital Signs & Weight: Vital Signs (12 hours) Temp Pulse Resp BP Pulse Ox 03/21/19 02:04 98.1 F 75 18 106/60 98 Weight Weight 68.492 kg Result Diagrams: 03/21/19 03:48
[2019-03-21] MEDS: Acetaminophen 500 MG TAB PO PRN ×2 (09:20→14:58)
--- NOTE | 2019-03-21 09:22 | ULT ---
PRELIMINARY REPORT/[facility]/EMERGENCY AFTER HOURS PROCEDURE: PROCEDURE INFORMATION: Exam: US , Limited Exam date and time: 03/21/2019 3:51 AM Age: 24 years old Clinical history: Lmp or gestational age (in weeks): 21wks; Antepartum complications; Bleeding; Pregn ant TECHNIQUE: Imaging protocol: Real-time ultrasound of the maternal uterus with image documentation. Exam focused on the clinical indication. COMPARISON: No relevant prior studies available. FINDINGS: Single living intrauterine gestation in vertex presentation. heart rate: 141bpm. AUA: 21w6d. HEIDI(AUA): 07/26/2019. HEIDI(LMP): 07/29/2019. EFW: 414g-38percentile. Visualized anatomy is unremarkable. Placenta is anterior. Amniotic fluid appears adequate. Cervix is closed measuring 4cm in length. IMPRESSION: Single viable intrauterine . No acute findings. Thank you for allowing us to participate in the care of your patient. Dictated and Authenticated by: Johnathan Thompson MD 03/21/2019 4:45 AM Central Time ([place] & [place]) FINAL REPORT EMERGENCY AFTER HOURS OB ULTRASOUND: DATE: 03/21/19 TIME: 0405 hours FINDINGS/IMPRESSION: No significant acute abnormality. Gestational age average is 21 weeks and 6 days. HEIDI is 07/26/2019. EFW is 414 gm, 38th percentile. Report in agreement with preliminary report given on-call by Chuck. POS: [facility]
[2019-03-21 11:43] VITALS: BP 110/64; TEMP 98.7
--- NOTE | 2019-03-21 12:02 | ULT ---
US Renal Bilateral STANDARD History: Renal stone Comparison: None. Findings: Real-time grayscale and color evaluation of the kidneys and urinary bladder was performed. Right kidney measures 11.3 x 6.3 x 6 cm with mild to moderate right-sided hydronephrosis. No mass. The left kidney measures 12.5 x 5.7 x 6.2 cm without mass, hydronephrosis, or abnormal calcifications . Urinary bladder is unremarkable. Impression: Mild to moderate right hydronephrosis. No calculus is appreciated.
--- NOTE | 2019-03-21 18:11 | DIS ---
DATE OF ADMISSION: 03/21/2019 DATE OF DISCHARGE: 03/21/2019 ADMITTING ATTENDING: Yo Jenkins MD DISCHARGE ATTENDING: Matt Mina MD RESIDENT: Donovan Crow MD IMAGING REPORTS: ultrasound on 03/21/2019. IMPRESSION: 1. Single viable intrauterine . No acute findings. 2. Renal ultrasound on 03/21/2019. Impression, [id number] right hydronephrosis. No calculus is appreciated. PRIMARY DIAGNOSES: Urinary tract infection and probable kidney stone. SECONDARY DIAGNOSIS: . DISCHARGE MEDICATIONS: 1. vitamin, resumed at home. 2. Acetaminophen 1000 mg p.o. q.6 hours p.r.n. 3. Keflex 500 mg p.o. q.8 hours x1 week. DISCONTINUED MEDICATIONS: Acetaminophen 325 mg p.o. p.r.n. HISTORY OF PRESENT ILLNESS/HOSPITAL COURSE: This is a 24-year-old, G5, P3-0-1-3 , who presented to the hospital at 21 weeks and 3 days as dated by last menstrual period and 8-week 6-day ultrasound for vaginal bleeding and back pain. The patient reported she had bleeding when she wiped. A speculum exam was performed and some blood around the cervix was seen on pulling out the speculum possibly at the os. Urinary analysis additionally showed evidence for UTI with 1 bacteria, white blood cells at 11 to 20, red blood cells greater than 50, although the patient was not thought to have pyelonephritis. She was not febrile and had a white count of 10.4. The patient did have ultrasound done, which was transabdominal, however, it showed no abnormalities and a cervical length of 4 cm. Renal ultrasound as above showed [id number] hydronephrosis, but no stones. The patient was pain controlled with Tylenol and given a bolus of fluid along with IV fluids at accelerated rate and the patient reported to feel well enough to go home with close followup at the clinic. The patient was sent home with urine funnel filter and plans to catch urine and kidney stone and follow up with clinic in 2 days. She was also sent home with Tylenol and Keflex prescription for 1 week to continue her antibiotic course as she had been given one dose of Rocephin in the hospital. DISPOSITION: Stable. DISCHARGE INSTRUCTIONS: 1. Location: Home. 2. Diet: No restrictions. 3. Activity: As tolerated. 4. Followup: Follow up with clinic, Dr. Garcia in 48 hours. Job ID: [id number] MTDD
== END 2019-03-21 17:50 | disposition home or self-care (01) ==
LOC: L&D/OP 01:39 → 3SW 06:15
PROVIDERS: ADMIT Obstetrics & Gynecology; ATTEND Obstetrics & Gynecology
DX: O99.89 Other specified diseases and conditions complicating pregnancy, childbirth and the puerperium (principal); N39.0 Urinary tract infection, site not specified; N13.30 Unspecified hydronephrosis; R10.2 Pelvic and perineal pain; M54.9 Dorsalgia, unspecified; O46.92 Antepartum hemorrhage, unspecified, second trimester; Z3A.21 21 weeks gestation of pregnancy; Z88.0 Allergy status to penicillin; Z91.010 Allergy to peanuts; Z91.018 Allergy to other foods
CPT/HCPCS: 36415; 51701; 76770; 76815; 81001; 85025; 87086; 96360; 96361; 99285; G0378; J0696; J3490

== ENCOUNTER 2019-07-27 18:30 | Inpatient (IN) | payer MEDICAID, OTHER, SELFPAY ==
[~2019-07-27 18:30] MED LIST changes: -Bupivacaine 0.25% HCL 30 ML VIAL ONE; +Lidocaine 2% MPF 10 ML AMP (For Epidural Use) ONE
[2019-07-27 18:49] VITALS: BMI 30.7
[2019-07-27] MEDS ORDERED: Ondansetron PF 4 MG/2 ML Vial IVP PRN ×2 (19:23→20:44)
[2019-07-27] MEDS ORDERED: Promethazine HCl 25 MG/ML VIAL IM PRN ×2 (19:23→20:45)
[2019-07-27] MEDS ORDERED: NS / Oxytocin 40 units/1000ml 1,000 ML IV PRN ×2 (19:23→20:44)
[2019-07-27] MEDS ORDERED: Lidocaine 1% (PF) 30 ML VIAL SC PRN ×2 (19:23→20:44)
[2019-07-27] MEDS ORDERED: Ibuprofen 800 MG TAB PO PRN ×2 (19:23→20:43)
[2019-07-27] MEDS ORDERED: hydrALAZINE 20 MG/ML VIAL SLOW IVP PRN ×2 (19:23→20:43)
--- NOTE | 2019-07-27 19:27 | PDOC.FPROB ---
FMR OB H&P: HPI - History of Present Illness Chief Complaint: IOL Indentification: 24 y/o @ 39.5 WGA by 8.6 wk sono History of Present Illness: Patient presents for IOL. Denies ctx, LOF, VB, d/c. Endorses movement. She takes metformin once a day and reports her fastings have been 90-93 and her postprandials have been in 110s. Primary Care Physician: Dr. Garcia - [facility] FMR OB H&P: Current - Care : 5 Para: 3013 Gestational age: 39w5d Due date: 07/29/19 Dating Criteria: 8.6wk sono Total weight gain: 8lbs - OB Labs Blood type: O RH: positive Antibody Screen: negative HIV: negative RPR: negative HepBsAg: negative Rubella: immune Quad screen: negative (progenity normal) Gonorrhea: negative Chlamydia: negative 1 hour gtt: positive 2h GTT A1c: 5.1 GBS: negative FMR OB H&P: History - Past Medical History PMH: kidney stone, resolved - OB History OB History: 3 term 's 1 1T SAB - Surgical History Sx History: Denies - Social History Social History: Denies tobacco/EtOH/drug use - Family History Family History: Denies FMR OB H&P: Medications - Current Home Medications: Medication Instructions Recorded Confirmed Type Vit,Calc76/Iron/Folic 1 tablet PO DAILY 07/14/13 07/27/19 History [Prenatabs Rx Tablet] metFORMIN [Glucophage] 500 mg PO QAM-WM 07/27/19 07/27/19 History Allergies/Adverse Reactions: Allergies Allergy/AdvReac Type Severity Reaction Status Date / Time Penicillins Allergy Intermediate Swollen Verified 03/21/19 02:04 Lips cinnamon Allergy Verified 01/27/16 06:51 peanut Allergy Verified 01/27/16 06:51 FMR OB H&P: ROS - Review of Systems General: denies: fever/chills, fatigue Eyes: denies: vision changes, double vision ENT: denies: nasal congestion, rhinorrhea, sore throat Cardiovascular: denies: chest pain, edema Respiratory: denies: cough, shortness of breath Gastrointestinal: denies: abdominal pain, nausea, vomiting Genitourinary (Female): denies: dysuria, hematuria, vaginal discharge, vaginal bleeding, contractions Musculoskeletal: denies: pain, swelling Neurologic: denies: numbness, weakness Integumentary: denies: itching, rash Hematologic/Lymphatic: denies: prolonged or excessive bleeding, enlarged lymph nodes Psychological: denies: depression, anxiety FMR OB H&P: Vital Signs - Maternal Vital signs: Vital Signs - First Documented Temp 98.6 F 07/27/19 18:29 - Heart Tones Baseline: 160 Variability: moderate Acceleration: present Deceleration: absent Category: category 1 [place] contractions every: none FMR OB H&P: Physical Exam - Physical Exam General: NAD, awake, alert and oriented HEENT: normocephalic and atraumatic, EOMI, MMM, conjunctiva clear, grossly normal vision, grossly normal hearing Neck: supple, no LAD Heart: pulses present, no edema General: no respiratory distress, no retractions Abdomen: soft, gravid, non-tender Musculoskeletal: normal gait and station, pulses present Neurological: no focal deficit Skin: no rash, good tugor, capillary refill <2 seconds Lymphatic: no unusual bruising or bleeding, no purpura Psychiatric: intact recent and remote memory, good judgement and insight - Pelvic Exam Vulva: normal hair distribution, no discharge, no blood SVE: Escudero score: 2 Membranes: intact Presentation: vertex on sola FMR OB H&P: A/P - Problem List (1) Term Current Visit: No Status: Acute Code(s): Z34.80 - ENCOUNTER FOR SUPRVSN OF NORMAL , UNSP TRIMESTER Comment: 24 y/o @ 39.5 WGA here for IOL SVE -Will admit to L&D -Start cytotec -Continuous monitoring -SVE q4h (2) GDM, class A2 Current Visit: Yes Status: Acute Code(s): O24.419 - GESTATIONAL DIABETES MELLITUS IN , UNSP CONTROL Comment: Will check a glucose to evaluate for need for intrapartum glucose management (3) H/O shoulder dystocia in prior , currently Current Visit: Yes Status: Acute Code(s): O09.299 - SUPRVSN OF PREG W POOR REPRODCTV OR OBSTET HISTORY, UNSP TRI Comment: Last with shoulder dystocia, resolved in < 1 min with Nikos Growth US at 32 weeks was 64.7%tile Disposition: Admit to L&D for IOL Discussion: Date/Time: 07/27/191924 This H&P was discussed with Dr. De La Rosa who agrees with the above documentation and plan. Signature: Gertrude Schwartz MD, PGY-3 Addendum - Attending - Attending Attestation Date/Time: 07/27/192125 I personally evaluated the patient and discussed the management with Dr. Schwartz. I agree with the History, Examination, Assessment and Plan documented above with any addition or exceptions noted below.
[2019-07-27] MEDS ORDERED: Lactated Ringer's 1,000 ML IV SCH (19:30)
[2019-07-27] MEDS ORDERED: NS w/ Oxytocin 10 units 500 ML IV SCH ×2 (19:30→20:45)
[2019-07-27] MEDS ORDERED: Misoprostol 100 MCG TAB VAG SCH (19:30)
[2019-07-27] MEDS: Lactated Ringer's 1,000 ML IV SCH ×2 (20:00→21:56)
[2019-07-27 21:21] LABS: Hemoglobin 12.1 g/dL (12.0-16.0); Mean Corpuscular Hemoglobin 30.1 pg (27.0-31.0); Mean Corpuscular Volume 88.4 fL (78.0-98.0); Mean Platelet Volume 11.5 fL (7.4-10.4); Platelet Count 168 thou/uL (130-400); RBC Distribution Width 13.1 % (11.5-14.5); Red Blood Cell (RBC) Count 4.01 mill/uL (4.20-5.40); White Blood Cell (WBC) Count 8.5 thou/uL (4.8-10.8)
[2019-07-27] MEDS: Misoprostol 100 MCG TAB VAG SCH (21:57)
[2019-07-27 22:01] LABS: Syphilis Antibody Nonreactive (Nonreactive); Syphilis Antibody Index 0.05 S/CO (<1.00 Non-Reactive)
[2019-07-28 01:11] LABS: HBSAg Index 0.19 S/CO (0-0.99); Hep B Surf Ag Non-Reactive S/CO (NonReactive)
--- NOTE | 2019-07-28 02:15 | PDOC.LDPN ---
Labor & Delivery Progress Note - Subjective Subjective: comfortable, no concerns - Objective Vital signs reviewed and normal: yes General: NAD, resting, breathing through contractions Uterine fundus: non tender SVE: /-3 in mid-position, soft consistency Dilation: 3 Effacement: 75% Station: -3 FHT: category 1, variability present [place] contractions every: 3-5 min Plan: continue plan of care, labor augmentation (cytotec placed with this check) -: 24 yo F @ 39.6 wks EGA here for IOL: #sIUP @ 39.6 wks -presents to IOL, Escudero score of 6 -SVE 05/06/-3 @ 2200, cytotec placed -SVE /-3 @ 0130, cytotec placed -Continuous monitoring -SVE q4h #A2GDM -glucose checks with cervical checks until delivery #Hx of shoulder dystocia in prior -Last with shoulder dystocia, resolved in < 1 min with Nikos -Growth US at 32 weeks was 64.7% percentile Diet: NPO with ice chips Code status: FULL Dispo: Stable, continue to augment labor with cytotec. Next check in ~4 hours.
[2019-07-28] MEDS ORDERED: Fentanyl 4 mcg/Bup 0.1% Cadd 100 ML ONE (04:45)
[2019-07-28] MEDS: Lactated Ringer's 1,000 ML IV SCH ×2 (05:00→08:20)
[2019-07-28] MEDS: Misoprostol 100 MCG TAB VAG SCH ×3 (05:17→12:43)
[2019-07-28] MEDS ORDERED: Promethazine HCl 25 MG/ML VIAL IM PRN (05:18)
[2019-07-28] MEDS ORDERED: Ondansetron PF 4 MG/2 ML Vial IVP PRN ×2 (05:18→13:17)
[2019-07-28] MEDS ORDERED: Naloxone HCl 0.4 mg/ml Vial IVP PRN ×2 (05:18)
[2019-07-28] MEDS ORDERED: diphenhydrAMINE 50 MG/ML VIAL IVP PRN (05:18)
[2019-07-28] MEDS ORDERED: Acetaminophen 325 MG TAB PO PRN (05:18)
[2019-07-28] MEDS ORDERED: Lactated Ringer's 500 ML IV PRN (05:18)
[2019-07-28] MEDS ORDERED: EPHEDRINE 25 MG/5 ML SYRINGE SLOW IVP PRN (05:18)
[2019-07-28] MEDS ORDERED: Communication Order-Pharmacy FS SCH (05:30)
[2019-07-28] MEDS ORDERED: Fentanyl 4 mcg/Bupivacaine 0.1% Cassette 100 ML EPIDURAL SCH (05:30)
--- NOTE | 2019-07-28 05:50 | PDOC.LDPN ---
Labor & Delivery Progress Note - Subjective Subjective: painful contractions, no concerns - Objective Vital signs reviewed and normal: yes General: NAD, breathing through contractions Uterine fundus: non tender SVE: 75/-3 Dilation: 4 Effacement: 75% Station: -3 FHT: category 1, variability present [place] contractions every: 1-2 min Plan: continue plan of care, labor augmentation -: 24 yo F @ 39.6 wks EGA here for IOL: #sIUP @ 39.6 wks -presents to IOL, Escudero score of 6 -SVE 05/06/-3 @ 2200, cytotec placed -SVE /-3 @ 0130, cytotec not actually placed with this check, pt unable to tolerate -SVE /-3 @ 0430, consider starting Pitocin if contractions begin to space out -Continuous monitoring -SVE q4h #A2GDM -glucose checks with cervical checks until delivery #Hx of shoulder dystocia in prior -Last with shoulder dystocia, resolved in < 1 min with Nikos -Growth US at 32 weeks was 64.7% percentile Diet: NPO with ice chips Code status: FULL Dispo: Stable, continue to augment labor with consideration of starting pitocin if contractions space out. Next check in ~3-4 hours.
--- NOTE | 2019-07-28 09:44 | PDOC.LDPN ---
Labor & Delivery Progress Note - Subjective Subjective: comfortable - Objective Vital signs reviewed and normal: yes General: NAD, resting, breathing through contractions Uterine fundus: non tender SVE: Dr. Ferguson @ 09:40 Dilation: 9.5 anterior lip Effacement: 100% Station: 0 FHT: category 1 (acels present, basline 130. Moderate variability.), variability present [place] contractions every: Q2-4 min Other exam findings: SROM @ approximately 0800 - Assessment (1) GDM, class A2 Code(s): O24.419 - GESTATIONAL DIABETES MELLITUS IN , UNSP CONTROL Current Visit: Yes Status: Acute Comment: Will check a glucose to evaluate for need for intrapartum glucose management (2) H/O shoulder dystocia in prior , currently Code(s): O09.299 - SUPRVSN OF PREG W POOR REPRODCTV OR OBSTET HISTORY, UNSP TRI Current Visit: Yes Status: Acute Comment: Last with shoulder dystocia, resolved in < 1 min with Nikos Growth US at 32 weeks was 64.7%tile (3) Term Code(s): Z34.80 - ENCOUNTER FOR SUPRVSN OF NORMAL , UNSP TRIMESTER Current Visit: No Status: Acute Comment: 24 y/o @ 39.5 WGA here for IOL SVE -Will admit to L&D -Start cytotec -Continuous monitoring -SVE q4h Plan: continue plan of care -: 24 yo F @ 39.6 wks EGA here for IOL: #sIUP @ 39.6 wks -presents to IOL, Escudero score of 6 upon presentation to L&D -SVE 3 @ 2200, cytotec placed -SVE /-3 @ 0130 -SVE /-3 @ 0430 -SVE 9.5/100/0 @ 0940 no pit at this time. making good change and ctx without. -Continuous monitoring -SVE q4h #A2GDM -glucose checks with cervical checks until delivery #Hx of shoulder dystocia in prior -Last with shoulder dystocia, resolved in < 1 min with Nikos -Growth US at 32 weeks was 64.7% percentile Diet: NPO with ice chips Code status: FULL Addendum - Attending - Attending Attestation Date/Time: 07/28/19 1890 I personally evaluated the patient and discussed the management with the team. I agree with the History, Examination, Assessment and Plan documented above with any addition or exceptions noted below. Most recent growth scan with percentile in the 40's.
--- NOTE | 2019-07-28 11:16 | PDOC.LDPN ---
Labor & Delivery Progress Note - Subjective Subjective: comfortable - Objective Vital signs reviewed and normal: yes General: NAD, resting SVE: 745 Dilation: 6 Effacement: 90% Station: -1 FHT: category 1 [place] contractions every: 4 minutes Plan: continue plan of care -: 24 yo F @ 39.6 wks EGA here for IOL: #sIUP @ 39.6 wks -SVE 05/06/-3 @ 2200, cytotec placed -SVE /-3 @ 0130, -SVE /-3 @ 0430, -SVE /-1@ 745 -Continuous monitoring -SVE q4h #A2GDM -glucose checks with cervical checks until delivery #Hx of shoulder dystocia in prior -Last with shoulder dystocia, resolved in < 1 min with Nikos -Growth US at 38 weeks was 43 percentile
[2019-07-28] MEDS ORDERED: Misoprostol 200 MCG TAB ONE (11:30)
--- NOTE | 2019-07-28 11:56 | PDOC.OPDEL ---
OB Operative/Delivery Note Delivery Dr/Surgeon: Radha Parikh with Dr. Gotti Attending Pre-Delivery Diagnosis: medically indicated induction Procedure/Post Delivery Dx: spontaneous vaginal delivery Weeks gestation: 39 (39.5) - Additional Findings/Plan Placenta delivered: spontaneous Repaired Obstetrical Laceration: none Estimated blood loss: 234 Compilations/Other Findings: Delivering Physician: Dr. Krishnamurthy Attending: Dr. Gotti Procedure: Spontaneous Vaginal Delivery Anesthesia: epidural EBL: 234 ml Pre-op Diagnosis: 1. Term intrauterine in labor 2. Hx of shoulder dystocia 3. A2GDM, treated with metformin Post-op Diagnosis: 1. Term intrauterine , delivered 2. Hx of shoulder dystocia 3. A@GDM, metformin treated Indications: A 24y/o female ->4014 presents induction of labor for GDM Delivery Note: This is 24yo F -> 4014 @ 39.5 wks who delivered a viable M at 11:27 on 07/28/19. Following an uneventful antepartum course, a vigorous male was delivered over an intact perineum in the occipitoanterior position. Anterior Shoulder and then remainder of the body delivered. X1 nuchal cord was reduced. Terminal meconium present.The head was held down and mouth and nares were bulb suctioned. Cord clamped after delayed cord clamping and cut and cord blood collected. Placenta delivered intact in the Garcia presentation with a 3 vessel cord noted. Fundal massage was performed and the fundus was boggy. A bimanual uterine massage was performed and then the fundus was firm. The cervix and vagina were inspected and found to be free of lacerations. There was a posterior vaginal abrasion that was hemostatic not requiring any repair. went to nursery in good condition for routine care. Apgars were 8 /9 at 1 & 5 minutes, respectively. Patient tolerated delivery well and went to after routine recovery/care. Post delivery plan: routine recovery Addendum - Attending - Attending Attestation Date/Time: 07/28/19 1710 I was present for the entire delivery.
[2019-07-28] MEDS ORDERED: Benzocaine-Menthol 82.5 ML CAN TOP PRN (13:17)
[2019-07-28] MEDS ORDERED: Lanolin Ointment 7 GM TUBE TOP PRN (13:17)
[2019-07-28] MEDS ORDERED: Bisacodyl 10 MG SUPP PR PRN (13:17)
[2019-07-28] MEDS ORDERED: hydrALAZINE 20 MG/ML VIAL SLOW IVP PRN (13:17)
[2019-07-28] MEDS ORDERED: NS / Oxytocin 40 units/1000ml 1,000 ML IV SCH (13:17)
[2019-07-28] MEDS ORDERED: Milk Of Magnesia 30 ML UDCUP PO PRN (13:17)
[2019-07-28] MEDS: Ibuprofen 800 MG TAB PO SCH ×2 (13:55→21:19)
[2019-07-28] MEDS: Ferrous Sulfate 325 MG TAB PO SCH (17:01)
[2019-07-28] MEDS: Docusate Calcium (SURFAK) 240 MG CAP PO SCH (21:19)
[2019-07-29] MEDS ORDERED: Acetaminophen/Codeine 30-300mg Tablet PO PRN (03:19)
[2019-07-29] MEDS: Ibuprofen 800 MG TAB PO SCH ×2 (05:54→14:49)
--- NOTE | 2019-07-29 06:46 | PDOC.PP ---
Post Progress Note Post Day #: 1 Subjective: c/o abd pain. denies BM, states she is passing flatus. urinating well after period of time she was unable to after delivery 2/2 pain. bonding well with baby. blood glucose poc 98 fasting this am. lochia amount of a period. PO intake tolerated: yes Flatus: yes Ambulation: yes Vital Signs (12 hours) Temp Pulse Resp BP Pulse Ox 07/29/19 01:30 98.3 F 61 18 109/63 97 07/28/19 19:44 98.6 F 70 20 103/62 97 Weight Weight 71.214 kg - Physical Examination General: NAD Cardiovascular: no m/r/g, RRR Respiratory: clear to auscultation bilaterally, non-labored breathing Abdominal: + bowel sounds, lochia, no distention, appropriately TTP Extremities: negative homans (B) Neurological: no gross focal deficits Psychiatric: A&Ox3, normal affect Result Diagrams: 07/27/19 21:03 Additional Labs: Post Labs Blood Type O POSITIVE 07/27/19 21:03 Hep Bs Antigen Non-Reactive S/CO (NonReactive) 07/27/19 21:03 (1) GDM, class A2 Code(s): O24.419 - GESTATIONAL DIABETES MELLITUS IN , UNSP CONTROL Status: Acute Comment: Will check a glucose to evaluate for need for intrapartum glucose management (2) H/O shoulder dystocia in prior , currently Code(s): O09.299 - SUPRVSN OF PREG W POOR REPRODCTV OR OBSTET HISTORY, UNSP TRI Status: Acute Comment: Last with shoulder dystocia, resolved in < 1 min with [facility] Growth US at 32 weeks was 64.7%tile (3) Term Code(s): Z34.80 - ENCOUNTER FOR SUPRVSN OF NORMAL , UNSP TRIMESTER Status: Acute Comment: 24 y/o @ 39.5 WGA here for IOL SVE 3 -Will admit to L&D -Start cytotec -Continuous monitoring -SVE q4h - Assessment/Plan 24 yo -> 4014 F delivered vis @ 39.6 wks on 07/28/19 @ 11:27. #sIUP @ 39.6 wks S/P -medical induction for A2GDM was on metformin - Pt tolerated procedure well - QBL 234, small hemostatic posterior abrasion not requiring repair. #A2GDM -fasting glucose this AM 98 - 2 hr PP pending. - pt has not had metformin since delivery. #Hx of shoulder dystocia in prior -Last with shoulder dystocia, resolved in < 1 min with Nikos -Growth US at 32 weeks was 64.7% percentile -Anterior shoulder delivered easily with current delivery. Diet: advance as tolerated Code status: FULL Addendum - Attending - Attending Attestation Date/Time: 07/29/19 1050 I personally evaluated the patient and discussed the management with Dr. Ferguson. I agree with the History, Examination, Assessment and Plan documented above with any addition or exceptions noted below. Likely home today.
[2019-07-29 07:37] LABS: Glucose POC Confirmation 98 mg/dl (70-105)
[2019-07-29] MEDS: Docusate Calcium (SURFAK) 240 MG CAP PO SCH (08:24)
[2019-07-29] MEDS: Ferrous Sulfate 325 MG TAB PO SCH ×2 (08:26→14:50)
[2019-07-29] MEDS ORDERED: Adacel (T-DAP) 0.5 ML SYRINGE IM ONE (09:00)
[2019-07-29] MEDS ORDERED: Prenatal Vitamin 1 TAB PO SCH (09:00)
[2019-07-29 11:50] VITALS: BP 112/73; TEMP 98.7
== END 2019-07-29 19:10 | disposition home or self-care (01) | DRG 807 ==
LOC: L&D/OP 18:30 → L&D 19:23 → 3SW 07-28 14:06
PROVIDERS: ADMIT Family Medicine; ATTEND Family Medicine
PROC: 10E0XZZ Delivery of Products of Conception, External Approach (ICD-10-PCS; principal; 2019-07-28)
PROC: 3E033VJ Introduction of Other Hormone into Peripheral Vein, Percutaneous Approach (ICD-10-PCS; 2019-07-28)
DX: O24.429 Gestational diabetes mellitus in childbirth, unspecified control (principal); Z37.0 Single live birth; O69.81X0 Labor and delivery complicated by cord around neck, without compression, not applicable or unspecified; Z3A.39 39 weeks gestation of pregnancy; O77.0 Labor and delivery complicated by meconium in amniotic fluid; S30.814A Abrasion of vagina and vulva, initial encounter; O99.89 Other specified diseases and conditions complicating pregnancy, childbirth and the puerperium
CPT/HCPCS: 36415; 36416; 51702; 82947; 85027; 86780; 86850; 86900; 86901; 87340; J2001

== ENCOUNTER 2021-05-13 19:34 | Emergency (ER) | payer MEDICAID ==
[2021-05-13 20:34] LABS: #Eosinphils 0.1 thou/uL (0.0-0.7); #Lymphocytes 2.3 thou/uL (1.20-3.40); #Monocytes 0.5 thou/uL (0.11-0.59); #Neutrophils 6.6 thou/uL (1.40-6.50); %Basophils 0.1 % (0.0-1.0); %Eosinophils 0.8 % (0.0-10.0); %Lymphocytes 24.1 % (21.0-51.0); %Monocytes 5.6 % (0.0-10.0); %Neutrophils 69.4 % (42.0-75.0); Hemoglobin 14.9 g/dL (12.0-16.0); Mean Corpuscular HGB CONC 34.6 g/dL (32.0-36.0); Mean Corpuscular Hemoglobin 32.1 pg (27.0-31.0); Mean Corpuscular Volume 92.7 fL (78.0-98.0); Mean Platelet Volume 8.9 fL (7.4-10.4); Platelet Count 232 thou/uL (130-400); Red Blood Cell (RBC) Count 4.64 mill/uL (4.20-5.40); White Blood Cell (WBC) Count 9.6 thou/uL (4.8-10.8)
[2021-05-13 20:57] LABS: BHCG - Serum POSITIVE (NEGATIVE)
[2021-05-13 20:58] LABS: Pregs Control Background? CLEAR/WHITE (CLR/WHITE); Pregs Control Bar Appear? YES (CONTROL BAR)
[2021-05-13 21:09] LABS: ALT (SGPT) 39 U/L (8-55); AST (SGOT) 34 U/L (5-34); Albumin 3.8 g/dL (3.5-5.0); Alkaline Phosphatase 54 U/L (40-110); Anion Gap 16 mmol/L (10-20); BUN (Urea Nitrogen) 8 mg/dL (7.0-18.7); Bilirubin, Total 0.3 mg/dL (0.2-1.2); Calc. Creatinine Clearance 0 mL/min (70-130); Calcium 9.1 mg/dL (7.8-10.44); Carbon Dioxide 20 mmol/L (22-29); Chloride 103 mmol/L (98-107); Globulin 3.8 g/dL (2.4-3.5); Glucose 88 mg/dL (70-105); Potassium 3.5 mmol/L (3.5-5.1); Protein, Total 7.6 g/dL (6.0-8.3); Sodium 135 mmol/L (136-145)
[2021-05-13 22:28] LABS: Bacteria/HPF None Seen HPF (None Seen); Bilirubin Negative (Negative); Blood, Urine Negative (Negative); Clarity Clear (Clear); Glucose, Urine (Dipstick) Normal (Negative); Ketone, Urine Negative (Negative); Leukocyte 75 Leu/uL (Negative); Nitrite Negative (Negative); Protein, Urine (Dipstick) 20 mg/dL (Neg-Trace); RBC/HPF 0-3 HPF (0-3); Squamous Epithelial 0-3 HPF (0-3); Urobilinogen 3 mg/dL (Less than 2); pH, Urine 6.5 (5.0-9.0)
[2021-05-13 22:29] LABS: WBC/HPF 0-3 HPF (0-3)
[2021-05-13] MEDS ORDERED: Acetaminophen 325 MG TAB ONE (22:29)
== END 2021-05-13 23:53 | disposition home or self-care (01) ==
LOC: ERS 19:34
DX: O98.511 Other viral diseases complicating pregnancy, first trimester (principal); U07.1 COVID-19; J12.82 Pneumonia due to coronavirus disease 2019; O24.419 Gestational diabetes mellitus in pregnancy, unspecified control; Z3A.13 13 weeks gestation of pregnancy
CPT/HCPCS: 71045; 76856; 80053; 81003; 81015; 84484; 84703; 85025; 93005

== ENCOUNTER 2022-12-05 12:41 | Outpatient (CLI) | payer BC ==
[2022-12-05 14:02] LABS: #Basophils 0.1 10x3/uL (0.0-0.2); #Eosinphils 0.1 10x3/uL (0.0-0.5); #Monocytes 0.5 10x3/uL (0.0-1.1); %Basophils 0.9 % (0.0-2.0); %Eosinophils 1.5 % (0.0-6.0); %Lymphocytes 21.1 % (18.0-47.0); %Monocytes 5.9 % (0.0-10.0); %Neutrophils 70.1 % (40.0-75.0); Hematocrit 43.8 % (34.9-44.5); Hemoglobin 14.7 g/dL (12.0-15.5); Mean Corpuscular HGB CONC 33.6 g/dL (32.0-36.0); Mean Corpuscular Hemoglobin 30.6 pg (27.0-33.0); Mean Corpuscular Volume 91.3 fl (81.6-98.3); Platelet Count 312 10x3/uL (150-450); RBC Distribution Width 12.8 % (11.5-14.5); White Blood Cell (WBC) Count 8.6 10x3/uL (3.5-10.5)
[2022-12-05 14:17] LABS: BHCG - Serum Negative (NEGATIVE); Pregs Control Background? CLEAR/WHITE (CLR/WHITE); Pregs Control Bar Appear? YES (CONTROL BAR)
[2022-12-05 14:18] LABS: ALT (SGPT) 34 U/L (8-55); AST (SGOT) 25 U/L (5-34); Albumin 4.4 g/dL (3.5-5.0); Alkaline Phosphatase 67 U/L (40-110); Anion Gap 14 mmol/L (10-20); BUN (Urea Nitrogen) 12 mg/dL (7.0-18.7); Bilirubin, Direct 0.2 mg/dL (0.1-0.3); Bilirubin, Total 0.6 mg/dL (0.2-1.2); Calc. Creatinine Clearance 0 mL/min (70-130); Calcium 8.8 mg/dL (7.8-10.44); Carbon Dioxide 21 mmol/L (22-29); Chloride 107 mmol/L (98-107); Estimated GFR 123; Globulin 3.2 g/dL (2.4-3.5); Glucose 108 mg/dL (70-105); Potassium 4.1 mmol/L (3.5-5.1); Protein, Total 7.6 g/dL (6.0-8.3); Sodium 138 mmol/L (136-145)
== END 2022-12-05 12:42 | disposition home or self-care (01) ==
LOC: LABBT 12:41
PROVIDERS: ATTEND Surgery
DX: Z01.812 Encounter for preprocedural laboratory examination (principal); K80.20 Calculus of gallbladder without cholecystitis without obstruction
CPT/HCPCS: 80053; 80076; 84703; 85025

== ENCOUNTER 2022-12-11 10:55 | Day surgery (SDC) | payer BC ==
[2022-12-09 12:23] VITALS: BMI 31.0
[2022-12-11] MEDS ORDERED: Indocyanine Green 25 MG/10 ML VIAL ONE ×2 (11:15→12:49)
[2022-12-11] MEDS ORDERED: EPINEPHrine 1 MG/ML AMP ONE (12:49)
[2022-12-11] MEDS ORDERED: Bupivacaine 0.25% HCL 30 ML VIAL ONE (12:49)
[2022-12-11] MEDS ORDERED: SUGAMMADEX SODIUM 200 MG/2 ML VIAL ONE (12:50)
[2022-12-11] MEDS ORDERED: Famotidine/PF 20 mg/2ml Vial ONE (12:50)
[2022-12-11] MEDS ORDERED: fentaNYL 50 mcg/mL 1 mL Vial ONE ×2 (12:50→15:13)
[2022-12-11] MEDS ORDERED: Meperidine HCl/PF 25 MG/ML VIAL ONE (12:50)
[2022-12-11] MEDS ORDERED: LevoFLOXacin 500 mg/D5W 100 ML BAG ONE (13:00)
[2022-12-11] MEDS ORDERED: Metoclopramide HCl 10 MG/2 ML VIAL ONE (13:11)
[2022-12-11] MEDS ORDERED: Dexamethasone 20 MG/5 ML VIAL ONE (13:11)
[2022-12-11] MEDS ORDERED: Ketorolac Tromethamine 30 MG/ML VIAL ONE (13:11)
[2022-12-11] MEDS ORDERED: Lidocaine 1% PF 5 ML VIAL ONE (13:11)
[2022-12-11] MEDS ORDERED: Rocuronium Bromide 10 MG/ML (10ML VIAL) ONE (13:11)
[2022-12-11] MEDS ORDERED: PROPOFOL 200 MG/20 ML VIAL ONE (13:11)
[2022-12-11] MEDS ORDERED: Ondansetron PF 4 MG/2 ML Vial ONE (13:11)
[2022-12-11] MEDS ORDERED: fentaNYL PF 100 MCG/2 ML SYRINGE ONE (14:53)
[2022-12-11] MEDS ORDERED: Promethazine HCl 25 MG/ML VIAL ONE (16:02)
[2022-12-11] MEDS ORDERED: HYDROcodone/Acetaminophen 5/325 mg Tablet ONE (17:05)
== END 2022-12-11 17:26 | disposition home or self-care (01) ==
LOC: SDC 10:55
PROVIDERS: ATTEND Surgery
PROC: 0FT44ZZ Resection of Gallbladder, Percutaneous Endoscopic Approach (ICD-10-PCS; principal; 2022-12-11)
DX: K80.10 Calculus of gallbladder with chronic cholecystitis without obstruction (principal); Z88.0 Allergy status to penicillin; Z79.899 Other long term (current) drug therapy
CPT/HCPCS: 88304; C1776; C1889; J0171; J1100; J1885; J1956; J2175; J2405; J2550; J2704; J2765; J3010; S0020; S0028

== ENCOUNTER 2023-01-03 00:26 | Emergency (ER) | payer BC ==
[2023-01-03 00:59] LABS: #Basophils 0.1 thou/uL (0.0-0.2); #Eosinphils 0.2 thou/uL (0.0-0.7); #Monocytes 0.4 thou/uL (0.11-0.59); #Neutrophils 5.3 thou/uL (1.40-6.50); %Basophils 0.8 % (0.0-1.0); %Eosinophils 1.9 % (0.0-10.0); %Lymphocytes 35.4 % (21.0-51.0); %Monocytes 4.3 % (0.0-10.0); %Neutrophils 57.3 % (42.0-75.0); Hematocrit 42.8 % (36.0-47.0); Hemoglobin 14.6 g/dL (12.0-16.0); Mean Corpuscular HGB CONC 34.1 g/dL (32.0-36.0); Mean Corpuscular Hemoglobin 30.9 pg (27.0-31.0); Mean Corpuscular Volume 90.7 fl (78.0-98.0); Mean Platelet Volume 10.6 fL (7.4-10.4); Platelet Count 343 10x3/uL (130-400); RBC Distribution Width 12.5 % (11.5-14.5); Red Blood Cell (RBC) Count 4.72 mill/uL (4.20-5.40); White Blood Cell (WBC) Count 9.3 10x3/uL (4.8-10.8)
[2023-01-03 01:07] LABS: BHCG - Serum Negative (NEGATIVE); Pregs Control Background? CLEAR/WHITE (CLR/WHITE); Pregs Control Bar Appear? YES (CONTROL BAR)
[2023-01-03 01:27] LABS: ALT (SGPT) 44 U/L (8-55); AST (SGOT) 33 U/L (5-34); Albumin 4.3 g/dL (3.5-5.0); Alkaline Phosphatase 80 U/L (40-110); Anion Gap 17 mmol/L (10-20); BUN (Urea Nitrogen) 10 mg/dL (7.0-18.7); Bilirubin, Total 0.4 mg/dL (0.2-1.2); Calc. Creatinine Clearance 0 mL/min (70-130); Calcium 9.1 mg/dL (7.8-10.44); Carbon Dioxide 19 mmol/L (22-29); Chloride 106 mmol/L (98-107); Estimated GFR 102; Globulin 3.5 g/dL (2.4-3.5); Glucose 141 mg/dL (70-105); Potassium 3.3 mmol/L (3.5-5.1); Protein, Total 7.8 g/dL (6.0-8.3); Sodium 139 mmol/L (136-145)
[2023-01-03] MEDS ORDERED: Acetaminophen 500 MG TAB ONE (01:30)
[2023-01-03] MEDS ORDERED: Metoclopramide HCl 10 MG/2 ML VIAL ONE (01:30)
[2023-01-03] MEDS ORDERED: Diazepam 5 MG TAB ONE (01:30)
== END 2023-01-03 02:17 | disposition home or self-care (01) ==
LOC: ERS 00:26
DX: R51.9 Headache, unspecified (principal)
CPT/HCPCS: 36415; 70450; 80053; 84703; 85025; 96365; J2765

== ENCOUNTER 2024-02-11 17:05 | Emergency (ER) | payer OTHER, SELFPAY | END 2024-02-11 18:40 | disposition short-term general hospital (02) | LOC: ERS 17:05 | DX: O47.03 False labor before 37 completed weeks of gestation, third trimester (principal); Z3A.33 33 weeks gestation of pregnancy | CPT/HCPCS: 99284 ==